=== PATIENT | male | born 1965 | race Caucasian/White ===

== ENCOUNTER 2020-07-12 20:47 | Inpatient (IN) | payer OTHER ==
[~2020-07-12] VITALS: Ht 172.7 cm; Wt 145.5 kg
[~2020-07-12 20:47] MED LIST: ASPI81CH PO; CYCL10 PO; Crestor40 MG PO; IBUP600 PO; INSULANPEN SC; LISI20 PO; METO50ER PO; Metformin HCl500 MG PO; PIOG30 PO; Percocet 5-3251 EACH PO; TERB250 PO; TYLECOD3 PO
[2020-07-12 21:52] LABS: BASOPHILS ABSOLUTE AUTO 0.02 K/mm3 (0.00-0.23); BASOPHILS PERCENT AUTO 0 % (0-2); EOSINOPHILS ABSOLUTE AUTO 0.01 K/mm3 (0.00-0.68); EOSINOPHILS PERCENT AUTO 0 % (0-6); Hematocrit 44.3 % (37.0-53.0); Hemoglobin 14.4 g/dL (13.5-17.5); IMMATURE GRAN ABSOLUTE AUTO 0.06 K/mm3 (0.00-0.10); IMMATURE GRAN PERCENT AUTO 0 % (0-1); LYMPHOCYTES ABSOLUTE AUTO 1.09 K/mm3 (0.84-5.20); LYMPHOCYTES PERCENT AUTO 8 % (21-46); MONOCYTES ABSOLUTE AUTO 1.58 K/mm3 (0.16-1.47); MONOCYTES PERCENT AUTO 11 % (4-13); Mean Corpuscular HGB 29.4 pg (26.0-34.0); Mean Corpuscular HGB Conc 32.5 g/dL (31.5-36.5); Mean Corpuscular Volume 91 fL (80-100); Mean Platelet Volume 10.8 fL (9.1-12.4); NEUTROPHILS ABSOLUTE AUTO 11.68 K/mm3 (1.96-9.15); NEUTROPHILS PERCENT AUTO 81 % (41-73); Platelet Count 238 K/mm3 (150-400); RDW Coefficient Variation 13.1 % (11.7-14.2); RDW Standard Deviation 43.8 fL (35.1-46.3); Red Blood Cell Count 4.89 M/mm3 (4.30-5.90); White Blood Cell Count 14.44 K/mm3 (4.00-11.30)
[2020-07-12 22:09] LABS: Albumin, Blood 3.1 g/dL (3.4-5.0); Albumin/Globulin Ratio 0.8 (0.8-1.8); Bilirubin, Total 0.7 mg/dL (0.1-1.0); Creatinine, Blood 1.67 mg/dL (0.60-1.20); Potassium, Blood 4.6 mmol/L (3.5-5.5); Total Protein, Blood 7.1 g/dL (6.4-8.2)
[2020-07-12] MEDS ORDERED: PREG50 PO (22:23)
[2020-07-13] MEDS ORDERED: PARO20 PO (00:51)
[2020-07-13] MEDS ORDERED: TADA10TA PO (00:53)
[2020-07-13 05:22] LABS: BASOPHILS ABSOLUTE AUTO 0.03 K/mm3 (0.00-0.23); BASOPHILS PERCENT AUTO 0 % (0-2); EOSINOPHILS ABSOLUTE AUTO 0.03 K/mm3 (0.00-0.68); EOSINOPHILS PERCENT AUTO 0 % (0-6); Hematocrit 40.6 % (37.0-53.0); Hemoglobin 12.9 g/dL (13.5-17.5); IMMATURE GRAN ABSOLUTE AUTO 0.08 K/mm3 (0.00-0.10); IMMATURE GRAN PERCENT AUTO 1 % (0-1); LYMPHOCYTES ABSOLUTE AUTO 1.85 K/mm3 (0.84-5.20); LYMPHOCYTES PERCENT AUTO 11 % (21-46); MONOCYTES ABSOLUTE AUTO 1.92 K/mm3 (0.16-1.47); MONOCYTES PERCENT AUTO 12 % (4-13); Mean Corpuscular HGB 29.4 pg (26.0-34.0); Mean Corpuscular HGB Conc 31.8 g/dL (31.5-36.5); Mean Corpuscular Volume 93 fL (80-100); Mean Platelet Volume 11.1 fL (9.1-12.4); NEUTROPHILS ABSOLUTE AUTO 12.33 K/mm3 (1.96-9.15); NEUTROPHILS PERCENT AUTO 76 % (41-73); Platelet Count 220 K/mm3 (150-400); RDW Coefficient Variation 13.3 % (11.7-14.2); RDW Standard Deviation 45.7 fL (35.1-46.3); Red Blood Cell Count 4.39 M/mm3 (4.30-5.90); White Blood Cell Count 16.24 K/mm3 (4.00-11.30)
[2020-07-13 05:46] LABS: Albumin, Blood 2.2 g/dL (3.4-5.0); Albumin/Globulin Ratio 0.6 (0.8-1.8); Bilirubin, Total 0.6 mg/dL (0.1-1.0); Bun/Creatinine Ratio 22.2 (12.0-20.0); Calcium, Blood 7.5 mg/dL (8.5-10.1); Creatinine, Blood 1.67 mg/dL (0.60-1.20); Globulin, Blood 3.6 g/dL (2.2-4.0); Potassium, Blood 4.3 mmol/L (3.5-5.5); Total Protein, Blood 5.8 g/dL (6.4-8.2)
--- NOTE | 2020-07-13 07:34 | NUR ---
SHIFT SUMMARY PATIENT ALERT AND ORIENTED. ARRIVED TO ROOM 325 AT 0030 VIA STRETCHER. PATIENT ABLE TO SELF TRANSFER INTO HIS BED AND AMBULATE INDEPENDENTLY NEEDED. PATIENT'S LEFT FOOT IS RED AND SWOLLEN. HIS RIGHT GREAT AND 2ND TOES HAVE BEEN REMOVED. TOENAIL BEDS ARE WET WITH YELLOW DRAINAGE AND REDNESS AROUND THE NAIL BEDS. SKIN ISSUES PHOTOGRAPHED, TOES CLEANED AND BANDAGED. PT RECEIVED FLUIS BOLUSES PER SEPSIS PROTOCOL. IV PATENT AND CURRENTLY INFUSING WITH NORMAL SALINE AT 75 ML/HR. BED IN LOWEST POSITION WITH WHEELS LOCKED. CALL LIGHT WITHIN REACH. REPORT GIVEN TO ONCOMING RN.
[2020-07-13 11:46] LABS: Influenza A, PCR Negative (NEGATIVE); Influenza B, PCR Negative (NEGATIVE); Resp Syncytial Virus, PCR Negative (NEGATIVE); SARS-Cov-2 (COVID-19) PCR, MMC Negative (NEGATIVE)
--- NOTE | 2020-07-13 17:42 | NUR ---
SHIFT SUMMARY PATIENT ALERT, ORIENTED, AND COOPERATIVE WITH CARE THROUGHOUT THIS SHIFT. PATIENT REMAINS ON IV ANTIBIOTICS FOR CELLULITIS OF THE LEFT FOOT. PATIENT MEDICATED FOR PAIN IN HIS LEFT FOOT THROUGHOUT THIS SHIFT. PATIENT IS A STANDBY ASSIST TO THE BATHROOM AND SHOWERED INDEPENDENTLY THIS AFTERNOON. PATIENT'S FAMILY MEMBER IN THE ROOM THROUGHOUT THIS AFTERNOON. PATIENT CURRENTLY SITTING UP IN BED EATING DINNER.
[2020-07-13 22:35] LABS: Vancomycin, Trough 20.2 ug/mL (5.0-10.0)
[2020-07-14 05:13] LABS: BASOPHILS ABSOLUTE AUTO 0.05 K/mm3 (0.00-0.23); BASOPHILS PERCENT AUTO 0 % (0-2); EOSINOPHILS ABSOLUTE AUTO 0.18 K/mm3 (0.00-0.68); EOSINOPHILS PERCENT AUTO 1 % (0-6); Hematocrit 38.5 % (37.0-53.0); Hemoglobin 12.3 g/dL (13.5-17.5); IMMATURE GRAN ABSOLUTE AUTO 0.07 K/mm3 (0.00-0.10); IMMATURE GRAN PERCENT AUTO 1 % (0-1); LYMPHOCYTES ABSOLUTE AUTO 1.55 K/mm3 (0.84-5.20); LYMPHOCYTES PERCENT AUTO 11 % (21-46); MONOCYTES ABSOLUTE AUTO 1.34 K/mm3 (0.16-1.47); MONOCYTES PERCENT AUTO 10 % (4-13); Mean Corpuscular HGB 28.7 pg (26.0-34.0); Mean Corpuscular HGB Conc 31.9 g/dL (31.5-36.5); Mean Corpuscular Volume 90 fL (80-100); Mean Platelet Volume 10.5 fL (9.1-12.4); NEUTROPHILS ABSOLUTE AUTO 10.97 K/mm3 (1.96-9.15); NEUTROPHILS PERCENT AUTO 77 % (41-73); Platelet Count 247 K/mm3 (150-400); RDW Coefficient Variation 13.4 % (11.7-14.2); Red Blood Cell Count 4.28 M/mm3 (4.30-5.90); White Blood Cell Count 14.16 K/mm3 (4.00-11.30)
[2020-07-14 05:32] LABS: Albumin, Blood 2.1 g/dL (3.4-5.0); Anion Gap 6 mmol/L (6-16); Blood Urea Nitrogen 34 mg/dL (8-24); Bun/Creatinine Ratio 21.7 (12.0-20.0); CO2, Blood 21 mmol/L (21-32); Calcium, Blood 7.5 mg/dL (8.5-10.1); Chloride, Blood 111 mmol/L (98-108); Creatinine, Blood 1.57 mg/dL (0.60-1.20); Glomerular Filtration Rate 49 (60-); Glucose, Blood 192 mg/dL (70-99); Phosphorus, Blood 1.9 mg/dL (2.5-4.9); Potassium, Blood 4.2 mmol/L (3.5-5.5); Sodium, Blood 138 mmol/L (136-145)
--- NOTE | 2020-07-14 07:06 | NUR ---
SHIFT SUMMARY PATIENT ALERT AND ORIENTED. WAS MEDICATED TWICE FOR PAIN DUE TO CELLULITIS PER EMAR. PATIENT WAS ABLE TO SLEEP FAIRLY WELL OVERNIGHT. IV PATENT AND INFUSING WITH NORMAL SALINE AT 75 ML/HR. BED IN LOWEST POSITION WITH WHEELS LOCKED. CALL LIGHT WITHIN REACH. REPORT GIVEN TO ONCOMING RN.
--- NOTE | 2020-07-14 17:19 | NUR ---
PATIENT A/OX4, UP WITH FWW. DRESSING TO R FOOT CHANGED X1 THIS SHIFT AFTER A SHOWER. VSS, ON RA. PATIENT REPORTING SOME WHEEZING THIS EVENING. ENCOURAGED PATIENT TO GET OOB AND WHEEZING DID IMPROVE AFTER A SHORT WALK. NS @ 75ML/HR INFUSING. NORCO AND TYLENOL GIVEN X1 THIS SHIFT FOR FEVER AND PAIN. L FOOT SWELLING AND REDENSS HAS GREATLY IMPROVED PER PATIENT. TOLERATING ADA DIET. SS INSULIN INCREASED TO HIGH SS AND BLOOD SUGAR WNL THIS EVENING. PATIENT IS CALM AND COOPERATIVE WITH CARE. AT BEDSIDE THIS EVENING.
[2020-07-15 04:20] LABS: BASOPHILS ABSOLUTE AUTO 0.03 K/mm3 (0.00-0.23); BASOPHILS PERCENT AUTO 0 % (0-2); EOSINOPHILS ABSOLUTE AUTO 0.25 K/mm3 (0.00-0.68); EOSINOPHILS PERCENT AUTO 3 % (0-6); Hemoglobin 12.2 g/dL (13.5-17.5); IMMATURE GRAN ABSOLUTE AUTO 0.04 K/mm3 (0.00-0.10); IMMATURE GRAN PERCENT AUTO 0 % (0-1); LYMPHOCYTES ABSOLUTE AUTO 1.13 K/mm3 (0.84-5.20); LYMPHOCYTES PERCENT AUTO 12 % (21-46); MONOCYTES ABSOLUTE AUTO 0.89 K/mm3 (0.16-1.47); MONOCYTES PERCENT AUTO 9 % (4-13); Mean Corpuscular HGB 29.1 pg (26.0-34.0); Mean Corpuscular HGB Conc 32.1 g/dL (31.5-36.5); Mean Corpuscular Volume 91 fL (80-100); Mean Platelet Volume 10.6 fL (9.1-12.4); NEUTROPHILS ABSOLUTE AUTO 7.36 K/mm3 (1.96-9.15); NEUTROPHILS PERCENT AUTO 76 % (41-73); Platelet Count 279 K/mm3 (150-400); RDW Coefficient Variation 13.5 % (11.7-14.2); RDW Standard Deviation 44.8 fL (35.1-46.3); Red Blood Cell Count 4.19 M/mm3 (4.30-5.90)
[2020-07-15 04:37] LABS: Anion Gap 4 mmol/L (6-16); Blood Urea Nitrogen 29 mg/dL (8-24); Bun/Creatinine Ratio 19.7 (12.0-20.0); CO2, Blood 24 mmol/L (21-32); Chloride, Blood 113 mmol/L (98-108); Creatinine, Blood 1.47 mg/dL (0.60-1.20); Glomerular Filtration Rate 52 (60-); Glucose, Blood 133 mg/dL (70-99); Phosphorus, Blood 2.3 mg/dL (2.5-4.9); Potassium, Blood 4.1 mmol/L (3.5-5.5); Sodium, Blood 141 mmol/L (136-145)
--- NOTE | 2020-07-15 06:25 | NUR ---
SHIFT SUMMARY PATIENT ALERT AND ORIENTED. MEDICATED PER EMAR FOR PAIN. PATIENT ABLE TO INDEPENDENTLY AMBULATE AROUND HIS ROOM. ABLE TO SLEEP WELL OVERNIGHT. NEW IV PLACED IN R AC AND IS INFUSING WITH NORMAL SALINE AT 75 ML/HR. BED IN LOWEST POSITION WITH WHEELS LOCKED. CALL LIGHT WITHIN REACH. REPORT GIVEN TO ONCOMING RN.
--- NOTE | 2020-07-15 16:55 | NUR ---
PATIENT A/OX4, UP INDPENDENTLY IN ROOM. VSS, ON RA. IV TO R AC WNL AND SL. RECEIVING ROCEPHIN DAILY TO TREAT L FOOT INFECTION. DRESSING CHANGED TO R GREAT AND 2ND TOE USING NONADHERENT AND COBAN. NORCO GIVEN TO TREAT PAIN WITH STATED RELIEF. TOLERATING ADA DIET, ACHS BLOOD SUGARS. CALM AND COOPERATIVE WITH CARE. CALLS APPROPRIATELY FOR ASSISTANCE.
[2020-07-16 05:14] LABS: Hemoglobin 11.7 g/dL (13.5-17.5)
[2020-07-16 05:31] LABS: Bun/Creatinine Ratio 15.6 (12.0-20.0); Calcium, Blood 8.4 mg/dL (8.5-10.1); Creatinine, Blood 1.41 mg/dL (0.60-1.20)
--- NOTE | 2020-07-16 05:55 | NUR ---
SHIFT SUMMARY PT A&O X4; PLEASANT & COMPLIANTE W/ CARE; VSS; DENIES CHEST PAIN; O2 SATS >93 ON RA; +2 PITTING EDEMA NOTED TO BLE; PT STATES AT TIMES FEELS SOB WHEN LYING IN BED; R AC IV REMOVED DUE TO INFILTRATION, IV REMOVED WHOLE & INTACT; REDNESS / WARMTH NOTED TO AREA; ADVISOR TO COMMAND IN COMBAT NOTIFIED; ADVISOR TO COMMAND IN COMBAT TO ROOM TO START NEW IV; PT INDEPENDENT IN ROOM; CALL LIGHT IN REACH; BED IN LOWEST POSITION; WILL CONTINUE TO MONITOR CLOSELY UNTIL HAND OFF TO DAY SHIFT RN.
--- NOTE | 2020-07-16 18:07 | NUR ---
NO ACUTE CHANGES THIS SHIFT. PATIENT IS A/OX4, UP INDPENDENTLY IN ROOM. VSS, ON RA AND AFEBRILE THIS SHIFT. ACHS BLOOD SUGARS, TOLERATING ADA DIET. EDEMA TO BLE HAS IMPROVED AFTER DOSE OF LASIX. LUNGS CLEAR THROUGHOUT. NORCO GIVEN X1 TO TREAT L FOOT PAIN. DRESSING TO R FOOT CHANGED THIS EVENING USING NONADHERENT AND COBAN. COOPERATIVE WITH CARE AND ABLE TO MAKE NEEDS KNOWN.
[2020-07-17 05:09] LABS: Hematocrit 39.2 % (37.0-53.0); Hemoglobin 12.6 g/dL (13.5-17.5)
[2020-07-17 05:27] LABS: Vancomycin, Trough 14.8 ug/mL (5.0-10.0)
[2020-07-17 05:32] LABS: Anion Gap 6 mmol/L (6-16); Blood Urea Nitrogen 19 mg/dL (8-24); Bun/Creatinine Ratio 15.3 (12.0-20.0); CO2, Blood 25 mmol/L (21-32); Calcium, Blood 8.7 mg/dL (8.5-10.1); Chloride, Blood 111 mmol/L (98-108); Creatinine, Blood 1.24 mg/dL (0.60-1.20); Glomerular Filtration Rate >60 (60-); Glucose, Blood 178 mg/dL (70-99); Phosphorus, Blood 3.7 mg/dL (2.5-4.9); Potassium, Blood 3.9 mmol/L (3.5-5.5); Sodium, Blood 142 mmol/L (136-145)
--- NOTE | 2020-07-17 05:41 | NUR ---
SUMMARY: A/OX4, INDPENDENT IN ROOM AND SPECIFIES NEEDS. LLE CELLULITIS PERSISTS W/IV ABX RECIEVED. DX TO R.2ND AND GREAT TOENAIL REMOVALS REMAINS C/D/I. SWELLING TO BLE'S IMPROVING. LS CLEAR T/O W/SPO2 WNL ON RA. PT HASN'T REQUIRED ANYTHING PRN FOR PAIN THIS SHIFT AND HAS SLEPT THE MAJORITY OF NOCTE W/O COMPLAINTS. NO ACUTE CHANGES, VSS/AFEBRILE. POSSIBLE D/C TODAY AND PT INQUIRED WHETHER MD WILL "HOLD HIM OUT OF WORK AGAIN LIKE LAST TIME". WILL DISCUSS W/DAY RN DURING SHIFT REPORT.
[2020-07-17] MEDS ORDERED: ACET325 PO (08:55)
[2020-07-17] MEDS ORDERED: CEPH500 PO (08:56)
[2020-07-17] MEDS ORDERED: HYDRA25 PO (08:57)
[2020-07-17] MEDS ORDERED: FURO20 PO (08:57)
[2020-07-17] MEDS ORDERED: Norco 5-325 Ta1 EACH PO (08:58)
[2020-07-17] MEDS ORDERED: PANT20 PO (08:58)
[2020-07-17] MEDS ORDERED: LACT PO (08:59)
[2020-07-17] MEDS ORDERED: INSULIN LI100 UNIT/6 SC (09:00)
--- NOTE | 2020-07-17 10:13 | NUR ---
DISCHARGE PT DISCHARGED AT 1013. PT & EDUCATED ON NEW MEDS, HOW TO ADMINISTER INSULIN AT HOME, AND FOLLOW UP APPOINTMENTS. PT & DENIED FURTHER NEED FOR INSTRUCTION AT THIS TIME. PT WHEELED OUT BY THIS RN. DRIVEN HOME BY . HARD SCRIPTS GIVEN TO PT AT THIS TIME.
== END 2020-07-17 10:13 | disposition home or self-care (01) | DRG 872 ==
LOC: ER 20:47 → MEDS 22:55 → ER 07-13 00:21 → MEDS 07-13 00:24 → ENPENDDIS 07-17 07:59 → MEDS 07-17 10:13
PROVIDERS: Emergency Medicine; Internal Medicine; ADMIT Family Medicine
DX: A41.9 Sepsis, unspecified organism (principal); L03.116 Cellulitis of left lower limb; Z68.42 Body mass index [BMI] 45.0-49.9, adult; Z20.828 Contact with and (suspected) exposure to other viral communicable diseases; Z23 Encounter for immunization; E11.40 Type 2 diabetes mellitus with diabetic neuropathy, unspecified; E11.65 Type 2 diabetes mellitus with hyperglycemia; E66.01 Morbid (severe) obesity due to excess calories; E78.5 Hyperlipidemia, unspecified; I12.9 Hypertensive chronic kidney disease with stage 1 through stage 4 chronic kidney disease, or unspecified chronic kidney disease; E11.22 Type 2 diabetes mellitus with diabetic chronic kidney disease; N18.30 Chronic kidney disease, stage 3 unspecified; S92.912A Unspecified fracture of left toe(s), initial encounter for closed fracture; Z79.4 Long term (current) use of insulin; K21.9 Gastro-esophageal reflux disease without esophagitis; X58.XXXA Exposure to other specified factors, initial encounter
CPT/HCPCS: 0241U; 36415; 73620; 80048; 80053; 80069; 80202; 82947; 83605; 85014; 85018; 85025; 87040; 96365; 96367; 96375; 99285-25; A9270; A9270-GY; C9113; G0008; J0696; J1170; J1650; J1940; J3010; J3370; J7030; J7050; Q2038

== ENCOUNTER 2022-01-16 07:18 | Day surgery (SDC) | payer OTHER ==
[~2022-01-16] VITALS: Ht 172.7 cm; Wt 126.4 kg
[~2022-01-16 07:18] MED LIST changes: +ACET325 PO; +CEPH500 PO; +FURO20 PO; +HYDRA25 PO; +INSULIN LI100 UNIT/6 SC; +LACT PO; +Norco 5-325 Ta1 EACH PO; +PANT20 PO; +PARO20 PO; +PREG50 PO; +TADA10TA PO
--- NOTE | 2022-01-16 07:58 | NUR ---
01/16/22 0758 ARIEL BUTLER 3 ATTEMPTS AT IV. FIRST ATTEMPT IN R HAND BY RN INFILTRATED. SECOND ATTEMPT BY MA IN L HAND MISSED. THIRD ATTEMPT BY MADHURI IN L WRIST SUCCESSFUL.
== END 2022-01-16 08:45 | disposition home or self-care (01) ==
LOC: ORSCSDS 07:18 → ORD 08:00 → ORSCSDS 08:00 → ORSCMMR 08:00 → ORSCSDS 08:45
PROVIDERS: Internal Medicine Gastroenterology
PROC: 0DJD8ZZ Inspection of Lower Intestinal Tract, Via Natural or Artificial Opening Endoscopic (ICD-10-PCS; principal; 2022-01-16 08:00)
DX: Z12.11 Encounter for screening for malignant neoplasm of colon (principal); Z86.010 Personal history of colon polyps; E13.40 Other specified diabetes mellitus with diabetic neuropathy, unspecified; Z98.84 Bariatric surgery status; I10 Essential (primary) hypertension; F32.A Depression, unspecified; E66.9 Obesity, unspecified; Z68.41 Body mass index [BMI] 40.0-44.9, adult; Z79.899 Other long term (current) drug therapy
CPT/HCPCS: 82947; J2250; J2704; J3010; J7120

== ENCOUNTER 2023-07-15 14:36 | Observation (INO) | payer OTHER ==
[~2023-07-15] VITALS: Ht 172.7 cm; Wt 129.0 kg
[2023-07-15 15:01] LABS: BASOPHILS ABSOLUTE AUTO 0.05 K/mm3 (0.00-0.23); BASOPHILS PERCENT AUTO 1 % (0-2); EOSINOPHILS ABSOLUTE AUTO 0.23 K/mm3 (0.00-0.68); EOSINOPHILS PERCENT AUTO 3 % (0-6); Hematocrit 50.2 % (37.0-53.0); Hemoglobin 16.5 g/dL (13.5-17.5); IMMATURE GRAN ABSOLUTE AUTO 0.02 K/mm3 (0.00-0.10); IMMATURE GRAN PERCENT AUTO 0 % (0-1); LYMPHOCYTES ABSOLUTE AUTO 2.19 K/mm3 (0.84-5.20); LYMPHOCYTES PERCENT AUTO 25 % (21-46); MONOCYTES ABSOLUTE AUTO 0.73 K/mm3 (0.16-1.47); MONOCYTES PERCENT AUTO 8 % (4-13); Mean Corpuscular HGB 30.4 pg (26.0-34.0); Mean Corpuscular HGB Conc 32.9 g/dL (31.5-36.5); Mean Corpuscular Volume 92 fL (80-100); Mean Platelet Volume 11.6 fL (9.1-12.4); NEUTROPHILS ABSOLUTE AUTO 5.58 K/mm3 (1.96-9.15); NEUTROPHILS PERCENT AUTO 63 % (41-73); Platelet Count 235 K/mm3 (150-400); RDW Coefficient Variation 13.2 % (11.7-14.2); RDW Standard Deviation 44.6 fL (35.1-46.3); Red Blood Cell Count 5.43 M/mm3 (4.30-5.90)
[2023-07-15 15:32] LABS: Albumin, Blood 3.6 g/dL (3.4-5.0); Albumin/Globulin Ratio 0.9 (0.8-1.8); Bilirubin, Total 0.4 mg/dL (0.1-1.0); Bun/Creatinine Ratio 18.4 (12.0-20.0); Calcium, Blood 8.8 mg/dL (8.5-10.1); Creatinine, Blood 1.14 mg/dL (0.60-1.20); Globulin, Blood 3.9 g/dL (2.2-4.0); Potassium, Blood 4.2 mmol/L (3.5-5.5); Total Protein, Blood 7.5 g/dL (6.4-8.2)
[2023-07-15] MEDS ORDERED: BUPRENORPHINE HC2 MG SL (20:10)
[2023-07-15 22:15] VITALS: BP 152/86
[2023-07-16 04:39] VITALS: BP 160/86
[2023-07-16 05:32] LABS: BASOPHILS ABSOLUTE AUTO 0.03 K/mm3 (0.00-0.23); BASOPHILS PERCENT AUTO 0 % (0-2); EOSINOPHILS ABSOLUTE AUTO 0.28 K/mm3 (0.00-0.68); EOSINOPHILS PERCENT AUTO 4 % (0-6); Hematocrit 49.8 % (37.0-53.0); Hemoglobin 16.3 g/dL (13.5-17.5); IMMATURE GRAN ABSOLUTE AUTO 0.02 K/mm3 (0.00-0.10); IMMATURE GRAN PERCENT AUTO 0 % (0-1); LYMPHOCYTES PERCENT AUTO 30 % (21-46); MONOCYTES ABSOLUTE AUTO 0.66 K/mm3 (0.16-1.47); MONOCYTES PERCENT AUTO 9 % (4-13); Mean Corpuscular HGB 29.9 pg (26.0-34.0); Mean Corpuscular HGB Conc 32.7 g/dL (31.5-36.5); Mean Corpuscular Volume 91 fL (80-100); Mean Platelet Volume 11.9 fL (9.1-12.4); NEUTROPHILS ABSOLUTE AUTO 4.04 K/mm3 (1.96-9.15); NEUTROPHILS PERCENT AUTO 56 % (41-73); Platelet Count 215 K/mm3 (150-400); RDW Coefficient Variation 13.2 % (11.7-14.2); RDW Standard Deviation 44.4 fL (35.1-46.3); Red Blood Cell Count 5.45 M/mm3 (4.30-5.90); White Blood Cell Count 7.23 K/mm3 (4.00-11.30)
[2023-07-16 06:05] LABS: Albumin, Blood 3.3 g/dL (3.4-5.0); Albumin/Globulin Ratio 0.9 (0.8-1.8); Bilirubin, Total 0.7 mg/dL (0.1-1.0); Bun/Creatinine Ratio 19.9 (12.0-20.0); Calcium, Blood 8.7 mg/dL (8.5-10.1); Creatinine, Blood 0.91 mg/dL (0.60-1.20); Globulin, Blood 3.6 g/dL (2.2-4.0); Potassium, Blood 3.9 mmol/L (3.5-5.5); Total Protein, Blood 6.9 g/dL (6.4-8.2)
[2023-07-16 07:43] VITALS: BP 141/77
[2023-07-16] MEDS ORDERED: VITAMIN D5000 UNIT PO (10:33)
[2023-07-16] MEDS ORDERED: FARXIGA5 MG PO (10:33)
[2023-07-16] MEDS ORDERED: MULVITA PO (10:34)
--- NOTE | 2023-07-16 14:49 | NUR ---
07/16/23 1449 Daisy Madden History, Chart, Medications and Allergies reviewed before start of procedure.MONITOR INTACT WITH CONTINUOUS PULSE OXIMETRY, CONTINUOUS END TITAL CO2, AND INTERMITTENT BLOOD PRESSURE.3-LEAD EKG REVIEWED WITH PHYSICIAN PRIOR TO START OF PROCEDURE.O2 VIA N/C INTACT THROUGHOUT SEDATION/PROCEDURE.Bite Block Placed.SEE ANESTHESIA RECORD. PROVIDING MAC.
[2023-07-16 14:50] VITALS: BP 167/73
[2023-07-16 15:25] VITALS: BP 136/70
--- NOTE | 2023-07-16 17:45 | NUR ---
SHIFT SUMMARY AND DISCHARGE PATIENT ALERT AND INDEPENDENT IN ROOM. PATIENT SHOWERED PRIOR TO GOING TO DAY SURGERY FOR ENDOSCOPY. PATIENT DISCHARGED HOME AFTER ENDOSCOPY. BIOPSIES TAKEN AND DILATION DONE TO ESOPHAGOUS. PATIENT ABLE TO TOLERATE LIQUIDS AFTER SCOPE. PATIENT MEDICATED FOR PAIN THROUGHOUT SHIFT. PATIENT HAD RECENT SURGERY ON L FOOT.
== END 2023-07-16 17:53 | disposition home or self-care (01) ==
LOC: ER 14:36 → MEDS 14:37
PROVIDERS: Physician Assistant; ADMIT Internal Medicine
PROC: 0DB58ZX Excision of Esophagus, Via Natural or Artificial Opening Endoscopic, Diagnostic (ICD-10-PCS; principal; 2023-07-15)
DX: K20.90 Esophagitis, unspecified without bleeding (principal); R13.10 Dysphagia, unspecified; R07.89 Other chest pain; I10 Essential (primary) hypertension; E11.9 Type 2 diabetes mellitus without complications; E78.5 Hyperlipidemia, unspecified; Z98.84 Bariatric surgery status; Z88.5 Allergy status to narcotic agent; Z79.899 Other long term (current) drug therapy
CPT/HCPCS: 36415; 71046; 80053; 82947; 83690; 84484; 85025; 88305; 88312; 93005; 93010; 96374; 96375; 96376; 99285-25; A9270; C9113; G0008; G0378; J1170; J3010; J7030; J7120; Q2036

== ENCOUNTER 2023-09-18 21:34 | Emergency (ER) | payer OTHER ==
[~2023-09-18] VITALS: Ht 172.7 cm; Wt 122.9 kg
[~2023-09-18 21:34] MED LIST changes: +BUPRENORPHINE HC2 MG SL; +FARXIGA5 MG PO; +MULVITA PO; +VITAMIN D5000 UNIT PO
[2023-09-18 22:15] VITALS: BP 150/75
[2023-09-18] MEDS ORDERED: HYDROmorphone HCl/Pf 1MG SYR IV ONE (22:40)
[2023-09-18] MEDS ORDERED: Ketorolac Tromethamine 30mg Vial IV ONE (23:35)
== END 2023-09-19 00:07 | disposition home or self-care (01) ==
LOC: ER 21:34
DX: S82.141A Displaced bicondylar fracture of right tibia, initial encounter for closed fracture (principal); I10 Essential (primary) hypertension; E11.9 Type 2 diabetes mellitus without complications; E78.5 Hyperlipidemia, unspecified; Z79.4 Long term (current) use of insulin; Z79.899 Other long term (current) drug therapy; Z88.5 Allergy status to narcotic agent; Z91.041 Radiographic dye allergy status; W01.198A Fall on same level from slipping, tripping and stumbling with subsequent striking against other object, initial encounter; Y92.480 Sidewalk as the place of occurrence of the external cause; Y99.0 Civilian activity done for income or pay
CPT/HCPCS: 29505; 73562-RT; 73590; 73700; 96374-59; 96375-59; 99284-25; J1170; J1885

== ENCOUNTER 2024-04-07 08:43 | Day surgery (SDC) | payer OTHER ==
[~2024-04-07] VITALS: Ht 172.7 cm; Wt 125.5 kg
[~2024-04-07 08:43] MED LIST changes: +B-12500 MC2 PO; +Cyclobenzaprine5 MG PO; +GLIP10 PO; +Lactated Ringer's 1,000 ML IV ONE; +Norco 10-325 T1 EACH PO; +Ropivacaine 0.5% HCL/PF 5 MG/ML 30ML Vial ONE; +TIZA4 PO
[2024-04-07] MEDS ORDERED: Lactated Ringer's 1,000 ML IV ONE (08:57)
[2024-04-07] MEDS ORDERED: NS 50 ML IV ONE ×2 (09:02→09:36)
[2024-04-07] MEDS ORDERED: CeFAZolin Sodium 2,000 MG VIAL ONE (09:02)
[2024-04-07] MEDS ORDERED: NOVOLOG100 UNIT/2 SC (09:31)
[2024-04-07] MEDS ORDERED: INSULANI SC (09:32)
[2024-04-07] MEDS ORDERED: OZEMPIC0.25 MG/02 SQ (09:32)
[2024-04-07] MEDS ORDERED: XYOSTED100 MG/0.1 SQ (09:33)
[2024-04-07] MEDS ORDERED: GABA300 PO (09:34)
[2024-04-07] MEDS ORDERED: Prozac20 MG PO (09:34)
[2024-04-07] MEDS ORDERED: CeFAZolin Sodium 1000 mg Vial ONE (09:36)
[2024-04-07] MEDS ORDERED: propofoL 20 ML IV ONE (09:59)
[2024-04-07] MEDS ORDERED: FentaNYL Citrate 50 MCG/ML 2 ML Injection ONE ×2 (09:59→11:25)
[2024-04-07] MEDS ORDERED: Midazolam HCl 1MG / ML 2ML Vial ONE (10:00)
[2024-04-07] MEDS ORDERED: Ketorolac Tromethamine 30mg Vial ONE (10:11)
[2024-04-07] MEDS ORDERED: EPINEPhrine HCl 1 MG/ML 1ML Amp XX ONE (10:18)
--- NOTE | 2024-04-07 10:24 | NUR ---
04/07/24 1024 Everton Barron ROPIVACAINE 0.5% 30 ML MIXED & VERIFIED W/ EPI 0.15 ML (1MG/ML) TO MAKE ROPIVACAINE 0.5% 1:200,000 FOR INJECTION AT [facility] BY DR DE LEON.
[2024-04-07] MEDS ORDERED: HYDROmorphone HCl/Pf 1MG SYR ONE ×2 (10:40→12:08)
[2024-04-07] MEDS ORDERED: ePHEDrine Sulfate 50 MG/ML 1ML Injection ONE (10:43)
[2024-04-07] MEDS ORDERED: Dexamethasone Sod Phos 10 MG/ML 1ML VIAL ONE (10:44)
[2024-04-07] MEDS ORDERED: Ondansetron HCl 2 MG / ML 2ML Vial ONE (10:44)
[2024-04-07] MEDS ORDERED: Morphine Sulfate 4 MG/1 ML Injection ONE (11:47)
[2024-04-07] MEDS ORDERED: OxyCODONE HCL 5 MG TAB ONE (12:16)
--- NOTE | 2024-04-07 12:20 | NUR ---
04/07/24 1220 Bing Okeefe PT IN A LOT OF PAIN. HE HAS STATED THAT HE HAS BEEN TAKING PAIN MEDICATION SINCE 2006 D/T PT SLIPPED ON SOME MUD AND HIT THE CURB, AND FELL, HE GOT A TIBAL PLATEU FRACTURE. 1220: PT RECEIVED 5MG OF OXYCODONE PO FOR A LEVEL OF PAIN 04/20. IV MEDICATION GIVEN: IV FENTANYL A TOTAL OF 100MCG GIVEN IV MEDICATION GIVEN: IV MORPHINE SULFATE A TOTAL OF 4MG GIVEN
[2024-04-07 13:08] VITALS: BP 114/63
== END 2024-04-07 13:09 | disposition home or self-care (01) ==
LOC: ORSCSDS 08:43
PROVIDERS: Orthopaedic Surgery
PROC: 0YP90YZ Removal of Other Device from Right Lower Extremity, Open Approach (ICD-10-PCS; principal; 2024-04-07 10:00)
DX: T84.9XXA Unspecified complication of internal orthopedic prosthetic device, implant and graft, initial encounter (principal); E11.22 Type 2 diabetes mellitus with diabetic chronic kidney disease; I12.9 Hypertensive chronic kidney disease with stage 1 through stage 4 chronic kidney disease, or unspecified chronic kidney disease; N18.9 Chronic kidney disease, unspecified; G47.33 Obstructive sleep apnea (adult) (pediatric); Z68.41 Body mass index [BMI] 40.0-44.9, adult; Z79.84 Long term (current) use of oral hypoglycemic drugs; Z79.899 Other long term (current) drug therapy
CPT/HCPCS: 82947; A9270; J0171; J0690; J1100; J1170; J1885; J2250; J2270; J2405; J2704; J2795; J3010; J7120

== ENCOUNTER 2025-04-02 13:00 | Emergency (ER) | payer OTHER ==
[~2025-04-02] VITALS: Ht 172.7 cm; Wt 122.5 kg
[~2025-04-02 13:00] MED LIST changes: +GABA300 PO; +INSULANI SC; -Lactated Ringer's 1,000 ML IV ONE; +NOVOLOG100 UNIT/2 SC; +OZEMPIC0.25 MG/02 SQ; +Prozac20 MG PO; -Ropivacaine 0.5% HCL/PF 5 MG/ML 30ML Vial ONE; +XYOSTED100 MG/0.1 SQ
[2025-04-02 13:21] VITALS: BP 180/88
[2025-04-02] MEDS ORDERED: HYDROcodone 5-APAP 325 TAB PO ONE (13:30)
[2025-04-02 14:33] LABS: BASOPHILS ABSOLUTE AUTO 0.04 K/mm3 (0.00-0.23); BASOPHILS PERCENT AUTO 0 % (0-2); EOSINOPHILS ABSOLUTE AUTO 0.26 K/mm3 (0.00-0.68); EOSINOPHILS PERCENT AUTO 3 % (0-6); Hematocrit 44.2 % (37.0-53.0); Hemoglobin 14.3 g/dL (13.5-17.5); IMMATURE GRAN ABSOLUTE AUTO 0.02 K/mm3 (0.00-0.10); IMMATURE GRAN PERCENT AUTO 0 % (0-1); LYMPHOCYTES ABSOLUTE AUTO 1.79 K/mm3 (0.84-5.20); LYMPHOCYTES PERCENT AUTO 20 % (21-46); MONOCYTES ABSOLUTE AUTO 0.76 K/mm3 (0.16-1.47); MONOCYTES PERCENT AUTO 8 % (4-13); Mean Corpuscular HGB Conc 32.4 g/dL (31.5-36.5); Mean Corpuscular Volume 92 fL (80-100); NEUTROPHILS ABSOLUTE AUTO 6.27 K/mm3 (1.96-9.15); NEUTROPHILS PERCENT AUTO 69 % (41-73); NRBC ABSOLUTE 0.00 K/mm3 (0.00-0.02); NRBC Auto 0.0 /100 WBC (0.0-0.2); Platelet Count 246 K/mm3 (150-400); RDW Coefficient Variation 14.0 % (11.7-14.2); RDW Standard Deviation 47.5 fL (35.1-46.3)
[2025-04-02] MEDS ORDERED: ELIQUIS5 M2 PO (14:47)
[2025-04-02 14:52] LABS: Alanine Aminotransfer (ALT/SGP 26.0 U/L (12-78); Albumin, Blood 3.2 g/dL (3.4-5.0); Albumin/Globulin Ratio 0.8 (0.8-1.8); Anion Gap 8.0 mmol/L (3-11); Aspartate Aminotrans (AST/SGOT 23.0 U/L (12-37); Bilirubin, Total 0.4 mg/dL (0.1-1.0); Blood Urea Nitrogen 18.0 mg/dL (8-24); CO2, Blood 27.0 mmol/L (21-32); Calcium, Blood 8.2 mg/dL (8.5-10.1); Chloride, Blood 113.0 mmol/L (98-108); Creatinine, Blood 1.22 mg/dL (0.60-1.20); Globulin, Blood 4.1 g/dL (2.2-4.0); Glucose, Blood 114.0 mg/dL (70-99); Potassium, Blood 3.7 mmol/L (3.5-5.5); Sodium, Blood 144.0 mmol/L (136-145); Total Protein, Blood 7.3 g/dL (6.4-8.2)
== END 2025-04-02 16:00 | disposition home or self-care (01) ==
LOC: ER 13:00
PROVIDERS: Emergency Medicine
DX: I82.432 Acute embolism and thrombosis of left popliteal vein (principal); I10 Essential (primary) hypertension; E11.9 Type 2 diabetes mellitus without complications; E78.5 Hyperlipidemia, unspecified; R79.89 Other specified abnormal findings of blood chemistry
CPT/HCPCS: 80053; 85025; 85379; 93005; 93010; 93971; 99284-25; A9270

== ENCOUNTER → 2025-04-25 | Outpatient (CLI) | payer OTHER ==
[~2025-04-25] MED LIST changes: +ELIQUIS5 M2 PO
== END ==
LOC: PLD 11:29 → LAB 11:29 → LAB SHORT 11:29
DX: E11.69 Type 2 diabetes mellitus with other specified complication (principal); M86.172 Other acute osteomyelitis, left ankle and foot; E11.621 Type 2 diabetes mellitus with foot ulcer; L97.529 Non-pressure chronic ulcer of other part of left foot with unspecified severity; L89.893 Pressure ulcer of other site, stage 3; E11.42 Type 2 diabetes mellitus with diabetic polyneuropathy
CPT/HCPCS: 88305; 88311

== ENCOUNTER → 2025-05-27 | Outpatient (CLI) | payer OTHER ==
[2025-05-27 13:09] LABS: BASOPHILS ABSOLUTE AUTO 0.05 K/mm3 (0.00-0.23); BASOPHILS PERCENT AUTO 1 % (0-2); EOSINOPHILS ABSOLUTE AUTO 0.12 K/mm3 (0.00-0.68); EOSINOPHILS PERCENT AUTO 1 % (0-6); Hematocrit 37.3 % (37.0-53.0); Hemoglobin 12.1 g/dL (13.5-17.5); IMMATURE GRAN ABSOLUTE AUTO 0.03 K/mm3 (0.00-0.10); IMMATURE GRAN PERCENT AUTO 0 % (0-1); LYMPHOCYTES ABSOLUTE AUTO 0.62 K/mm3 (0.84-5.20); LYMPHOCYTES PERCENT AUTO 6 % (21-46); MONOCYTES ABSOLUTE AUTO 0.64 K/mm3 (0.16-1.47); MONOCYTES PERCENT AUTO 6 % (4-13); Mean Corpuscular HGB Conc 32.4 g/dL (31.5-36.5); Mean Corpuscular Volume 93 fL (80-100); NEUTROPHILS ABSOLUTE AUTO 9.30 K/mm3 (1.96-9.15); NEUTROPHILS PERCENT AUTO 86 % (41-73); NRBC ABSOLUTE 0.00 K/mm3 (0.00-0.02); NRBC Auto 0.0 /100 WBC (0.0-0.2); Platelet Count 170 K/mm3 (150-400); RDW Coefficient Variation 14.9 % (11.7-14.2); RDW Standard Deviation 51.4 fL (35.1-46.3)
[2025-05-27 13:19] LABS: Alanine Aminotransfer (ALT/SGP 24.0 U/L (12-78); Albumin, Blood 2.6 g/dL (3.4-5.0); Albumin/Globulin Ratio 0.7 (0.8-1.8); Anion Gap 15.0 mmol/L (6-16); Aspartate Aminotrans (AST/SGOT 26.0 U/L (12-37); Bilirubin, Total 0.5 mg/dL (0.1-1.0); Blood Urea Nitrogen 49.0 mg/dL (8-24); CO2, Blood 21.0 mmol/L (21-32); Calcium, Blood 8.4 mg/dL (8.5-10.1); Chloride, Blood 105.0 mmol/L (98-108); Creatinine, Blood 4.29 mg/dL (0.60-1.20); Globulin, Blood 3.5 g/dL (2.2-4.0); Glucose, Blood 168.0 mg/dL (70-99); Potassium, Blood 5.3 mmol/L (3.5-5.5); Sodium, Blood 136.0 mmol/L (136-145); Total Protein, Blood 6.1 g/dL (6.4-8.2)
== END ==
LOC: LAB 13:04 → LAB SHORT 13:04
PROVIDERS: Family Medicine
DX: R11.2 Nausea with vomiting, unspecified (principal)
CPT/HCPCS: 80053; 85025

== ENCOUNTER → 2025-06-16 | Outpatient (CLI) | payer OTHER ==
[2025-06-16 13:05] LABS: Albumin, Blood 3.3 g/dL (3.4-5.0); Anion Gap 11 mmol/L (3-11); Blood Urea Nitrogen 46 mg/dL (8-24); CO2, Blood 32 mmol/L (21-32); Calcium, Blood 9.0 mg/dL (8.5-10.1); Chloride, Blood 94 mmol/L (98-108); Glucose, Blood 180 mg/dL (70-99); Phosphorus, Blood 7.2 mg/dL (2.5-4.9); Potassium, Blood 3.5 mmol/L (3.5-5.5); Sodium, Blood 133 mmol/L (136-145)
[2025-06-16 13:07] LABS: Creatinine, Blood 8.34 mg/dL (0.60-1.20)
== END ==
LOC: LAB 12:10 → LAB SHORT 12:10
PROVIDERS: Internal Medicine Nephrology
DX: N18.6 End stage renal disease (principal)
CPT/HCPCS: 80069